=== PATIENT | female | born 1980 | race African-American/Black ===

== ENCOUNTER 2022-06-11 11:01 | Emergency (ER) | payer MEDICAID ==
[~2022-06-11] VITALS: Ht 165.1 cm; Wt 111.6 kg
[2022-06-11 11:05] VITALS: BP 108/73
--- NOTE | 2022-06-11 11:10 | NUR ---
PT AMBULATED TO ER BED 7
--- NOTE | 2022-06-11 11:15 | NUR ---
MD THORPE AT BEDSIDE FOR EVALUATION
[2022-06-11] MEDS ORDERED: IBUP-1842 PO (11:21)
[2022-06-11] MEDS ORDERED: TRAM50TA3 PO (11:21)
[2022-06-11] MEDS ORDERED: AMOX1TAB8 PO (11:21)
[2022-06-11] MEDS ORDERED: KETOROLAC 30 MG/ML VIAL IM ONE (11:25)
[2022-06-11 11:28] VITALS: BP 108/73
--- NOTE | 2022-06-11 11:28 | NUR ---
Patient discharged with v/s stable. Written and verbal after care instructions FOR DENTAL ABSCESS given and explained. Patient alert, oriented and verbalized understanding of instructions. Ambulatory with steady gait. All questions addressed prior to discharge. ID band removed. Patient advised to follow up with PMD. Rx of AMOXICILLIN, IBUPROFEN, AND TRAMADOL HCL given. Opportunity to ask questions provided and answered. NO NURSING CARE RENDERED
--- NOTE | 2022-06-11 11:29 | NUR ---
The patient's care was reviewed and supervised by Karime Schmidt RN.
== END 2022-06-11 11:29 | disposition home or self-care (01) ==
LOC: MED 11:01
DX: K04.7 Periapical abscess without sinus (principal)
CPT/HCPCS: 99283

== ENCOUNTER 2023-09-24 20:08 | Emergency (ER) | payer MEDICAID ==
[~2023-09-24 20:08] MED LIST: AMOX1TAB8 PO; IBUP-1842 PO; TRAM50TA3 PO
== END 2023-09-24 21:05 | disposition left against medical advice (07) ==
LOC: MED 20:08
DX: R53.81 Other malaise (principal); Z53.21 Procedure and treatment not carried out due to patient leaving prior to being seen by health care provider